=== PATIENT | male | born 1950 | race Caucasian/White ===

== ENCOUNTER 2021-09-01 06:05 | Observation (INO) | payer MEDICAID, MEDICARE, OTHER ==
--- NOTE | 2021-09-01 07:02 | EDM.PDOC ---
ED HPI GENERAL MEDICAL PROBLEM - General Chief Complaint: General Stated Complaint: SYNCOPE Time Seen by Provider: 09/01/21 06:56 Source of Information: Reports: Patient History Limitations: Reports: No Limitations - History of Present Illness INITIAL COMMENTS - FREE TEXT/NARRATIVE: 70 YO WM PRESENTS TO ER AFTER SYNCOPE THIS AM. PT REPORTS HE WAS SLEEPING IN HIS RECLINER AND WOKE UP TO USE THE RESTROOM. PT REPORTS TAKING 3 STEPS AND LOSING HIS BALANCE FALLING TO THE FLOOR. PT UNSURE IF HE LOST CONSCIOUSNESS, BUT STATES HE SPENT THE NEXT 30 MINUTES TRYING TO GET OFF THE FLOOR BEFORE CALLING HIS WHO CALLED EMS FOR ASSISTANCE. PT COMPLAINING OF MILD RIGHT HIP PAIN AND NO OTHER COMPLAINTS AT THIS TIME. PT REPORTS HE WAS TAKEN OFF HIS TRAMADOL AND STARTED ON A NEW MEDICATION (UNSURE OF NAME) WHICH HAS MADE HIM DIZZY SO HE STOPPED TAKING IT YESTERDAY. PT DENIES CHEST PAIN, NO SHORTNESS OF BREATH, NO HEAD/NECK PAIN. PT DENIES RECENT ILLNESSES- NO COUGH/CONGESTION, NO FEVER/CHILLS. PT TAKES PAIN MEDICATION FOR HIS CHRONIC BACK PAIN AND ARTHRITIS. PT ALERT AND ORIENTED X 4, PT ABLE TO MOVE ALL EXTREMITIES WITHOUT PAIN OR DIFFICULTY. Onset: Today Location: Reports: Lower Extremity, Right Quality: Reports: Ache Severity: Mild Improves with: Reports: None Worsens with: Reports: None Associated Symptoms: Reports: No Other Symptoms, Weakness. Denies: Confusion, Chest Pain, Cough, Fever/Chills, Nausea/Vomiting, Shortness of Breath right hip Pain Score (Numeric/FACES): 6 - Related Data Allergies Allergy/AdvReac Type Severity Reaction Status Date / Time sertraline Allergy Mild Other Verified 09/01/21 06:16 acetaminophen [From Vicodin] Allergy Anaphylactic Verified 09/01/21 06:16 Shock allopurinol Allergy Blurred Verified 09/01/21 06:16 Vision atorvastatin Allergy Cannot Verified 09/01/21 06:16 Remember betamethasone Allergy Cannot Verified 09/01/21 06:16 [From Celestone] Remember gabapentin [From Neurontin] Allergy Anaphylactic Verified 09/01/21 06:16 Shock hydrocodone bitartrate Allergy Anaphylactic Verified 09/01/21 06:16 [From Vicodin] Shock propoxyphene Allergy Cannot Verified 09/01/21 06:16 [From Darvocet-N] Remember Home Meds: Home Meds Omeprazole 20 mg PO BID 12/05/15 [History] glipiZIDE [Glucotrol] 10 mg PO BIDAC 12/05/15 [History] Aspirin 81 mg PO BRK 02/23/16 [History] Insulin Glarg,Human.Rec.Analog [LantUS Solostar] 42 units SUBCUT BID 02/23/16 [History] Acetaminophen 2 tab PO BID 01/12/20 [History] Bisacodyl [Gentle Laxative] 10 mg RC DAILY PRN 01/12/20 [History] Diclofenac Sodium [Voltaren 1% Gel] 1 applic TOP QID PRN 01/12/20 [History] Melatonin 12 mg PO BEDTIME 01/12/20 [History] Methyl Salicylate/Menthol [Muscle Rub] 85 gm TP Q4HR PRN 01/12/20 [History] Miconazole 1 applic TOP BID PRN 01/12/20 [History] Mirtazapine 60 mg PO DAILY 01/12/20 [History] Nefazodone [Serzone] 100 mg PO DAILY 01/12/20 [History] Nefazodone [Serzone] 150 mg PO BEDTIME 01/12/20 [History] Propranolol [Inderal LA] 60 mg PO DAILY 01/12/20 [History] Sennosides/Docusate Sodium [Senna Plus 8.6-50 mg Tablet] 1 each PO BID 01/12/20 [History] busPIRone [Buspar] 15 mg PO DAILY@1630 01/12/20 [History] rOPINIRole [Requip] 0.5 mg PO BEDTIME 01/12/20 [History] Clopidogrel Bisulfate [Plavix] 75 mg PO BEDTIME 03/05/20 [History] Empagliflozin [Jardiance] 10 mg PO DAILY 03/05/20 [History] Magnesium Hydroxide [Milk of Magnesia] 30 ml PO DAILY PRN 03/05/20 [History] Nitroglycerin [Nitrostat] 0.4 mg SL ASDIRECTED 03/05/20 [History] Rosuvastatin [Crestor] 5 mg PO ASDIRECTED 03/05/20 [History] Past Medical History HEENT History: Reports: Allergic Rhinitis, Cataract, Hard of Hearing, Impaired Vision, Otitis Media, Sinusitis. 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 Mixed bilateral hearing loss/presbycusis. He does wear glasses, however no history of diabetic retinopathy. Cardiovascular History: Reports: CAD, High Cholesterol, Hypertension, WI, PTCA, Stents, Other (See Below). Denies: Afib, Aneurysm, Arrhythmia, Blood Clots/VTE/DVT, Bypass, Cardiomyopathy, Heart Failure, Heart Murmur, PVD, Syncope Other Cardiovascular History: Acute WI on 01/12/20 and 08/01/16 with stents as below. Respiratory History: Reports: COPD, Intubation, Previous, Sleep Apnea, Other (See Below). Denies: Asthma, Bronchitis, Recurrent, Intubation, Difficult, PE, Pneumonia, Recurrent, Pneumothorax, TB Other Respiratory History: Patient has not been using his CPAP. Gastrointestinal History: Reports: Celiac Disease, Chronic Constipation, Chronic Diarrhea, Diverticulosis, Fecal Incontinence, GERD, Hemorrhoids, Other (See Below). Denies: Bowel Obstruction, Cholelithiasis, Colon Polyp, Gastritis, Hiatal Hernia, Inflammatory Bowel Disease, Irritable Bowel Syndrome, Jaundice, Pancreatitis, PUD Other Gastrointestinal History: Constipation, however diarrhea with exacerbation of his celiac disease. Genitourinary History: Reports: Prostate Disorder, Retention, Urinary, Urinary Incontinence, UTI, Recurrent. Denies: Acute Renal Failure, Chronic Renal Insuffiency, Diabetic Nephropathy, Renal Calculus, STD Musculoskeletal History: Reports: Arthritis, Back Pain, Chronic, Fracture, Gout, Neck Pain, Chronic, Osteoarthritis, Other (See Below). Denies: Amputation, Osteoporosis, RA, SLE Other Musculoskeletal History: Right ankle fracture in 2000 with surgery as below. Neurological History: Reports: Headaches, Chronic, Migraines, Neuropathy, Diabetic, Neuropathy, Peripheral, Vertigo, Other (See Below). Denies: Alzheimers Disease, Cerebral Aneurysms, Concussion, CVA, Head Trauma, MS, Parkinson's, Seizure, TIA Other Neuro History: Previous history of migraine headaches nonproblematic at this time. Restless leg syndrome with history of sleep apnea as above. Benign essential tremor. Psychiatric History: Reports: Anxiety, Depression, Psych Hospitalization(s), Psychosis, Suicide Attempt. Denies: Abuse, Victim of, ADD, ADHD, Addiction, Suicidal Ideation Other Psychiatric History: Previous hospitalizations for his anxiety depression disorder 5 with last hospitalization in about 2018 with 2 previous suicidal attempts. Chronic insomnia. Endocrine/Metabolic History: Reports: Diabetes, Type II, IDDM, Obesity/BMI 30+. Denies: Diabetes Mellitus, Type 3c, Hypothyroidism, Osteopenia, Osteoporosis Hematologic History: Reports: None. Denies: Anemia, Blood Transfusion(s), Iron Deficiency Immunologic History: Reports: None. Denies: AIDS, HIV, SLE Dermatologic History: Reports: None. Denies: Eczema, Psoriasis - Infectious Disease History Infectious Disease History: Reports: Chicken Pox, Measles, Meningitis (Possible meningitis at age 2.), Mumps. Denies: C-Difficile, Mononucleosis, MRSA, Pertussis (Whooping Cough), Rheumatic Fever, Rubella, Scarlet Fever, Shingles, TB, VRE - Past Surgical History Head Surgeries/Procedures: Reports: None HEENT Surgical History: Reports: Cataract Surgery, Oral Surgery, Other (See Below). Denies: Adenoidectomy, Eye Surgery, Laser Surgery, LASIK, Myringotomy w Tube(s), Naso-Sinus Surgery, Tonsillectomy Other HEENT Surgeries/Procedures: [place] teeth extraction 2 in the with additional teeth extractions. Cardiovascular Surgical History: Reports: Coronary Artery Stent, Percutaneous Transluminal Angioplasty, Other (See Below). Denies: Coronary Artery Bypass, Varicose Other Cardiovascular Surgeries/Procedures: PTCA/stent 2 in December 2019 with PTCA/stent 3 on 08/02/16. Respiratory Surgical History: Reports: None. Denies: Thoracentesis GI Surgical History: Reports: Colonoscopy, Hernia, Inguinal, Other (See Below). Denies: Appendectomy, Cholecystectomy, Hernia, Abdominal, Hernia Repair/Other, Polypectomy Other GI Surgeries/Procedures: Left inguinal hernia repair in the mid-. Multiple previous colonoscopies last in 2018 for screening of his celiac disease. Male Surgical History: Reports: Circumcision, Other (See Below). Denies: TURP-Transurethral Resection of Prostate, Vasectomy Other Male Surgeries/Procedures: Circumcision as an . Endocrine Surgical History: Reports: None. Denies: Thyroid Biopsy Musculoskeletal Surgical History: Reports: Joint Replacement, ORIF, Shoulder Replacement, Shoulder Surgery, Other (See Below). Denies: Carpal Tunnel, Ganglion Cyst Other Musculoskeletal Surgeries/Procedures:: Left shoulder arthroplasty in 2004 with right shoulder arthroplasty in 2005. ORIF of right ankle fracture in 2000. Oncologic Surgical History: Reports: None Dermatological Surgical History: Reports: None - Past Imaging History Past Imaging History: Reports: Angiography (Last in December 2019 as above), MRI (Lumbar spine in November 2014.) Social & Family History - Family History HEENT: Reports: Cataract, Retinal Detachment, Other (See Below). Denies: Glaucoma, Macular Degeneration Other HEENT Family History: Multiple Family members with cataracts. Brother with detached retina. Cardiac: Reports: None. Denies: Afib, Aneurysm, Arrhythmia, Blood Clots/VTE/DVT, CAD, Heart Failure, High Cholesterol, Hypertension, WI, PVD/COD, Syncope Respiratory: Reports: COPD, Other (See Below). Denies: Asthma, PE, Pneumothorax, Sleep Apnea Other Respiratory Family Hisory: Father with history of COPD with tobacco use and fungal infection Musculoskeletal: Reports: Osteoarthritis, RA, Other (See Below) Other Musculoskeletal Family History: Brother with rheumatoid arthritis. 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 Denies: Bruising Neurological: Reports: Dizziness, Weakness Psychiatric: Reports: No Symptoms Hematologic/Lymphatic: Reports: No Symptoms Immunologic: Reports: No Symptoms ED EXAM, GENERAL - Physical Exam Exam: See Below Exam Limited By: No Limitations General Appearance: Alert, WD/WN, No Apparent Distress Nose: Normal Inspection, Normal Mucosa, No Blood Throat/Mouth: Normal Inspection, Normal Lips, Normal Teeth, Normal Gums, Normal Oropharynx, Normal Voice, No Airway Compromise Head: Atraumatic, Normocephalic Neck: Normal Inspection, Supple, Non-Tender, Full Range of Motion Respiratory/Chest: No Respiratory Distress, Lungs Clear, Normal Breath Sounds, No Accessory Muscle Use, Chest Non-Tender Cardiovascular: Normal Peripheral Pulses, Regular Rate, Rhythm, No Edema, No Gallop, No JVD, No Murmur, No Rub GI/Abdominal: Normal Bowel Sounds, Soft, Non-Tender, No Organomegaly, No Distention, No Abnormal Bruit, No Mass Back Exam: Normal Inspection, Full Range of Motion, NT Extremities: Normal Inspection, Normal Range of Motion, No Pedal Edema, Normal Capillary Refill, Other (MILD RIGHT HIP PAIN ON PALPATION WITHOUT PAIN ON AROM) Neurological: Alert, Oriented, CN II-XII Intact, Normal Cognition, Normal Gait, No Motor/Sensory Deficits Psychiatric: Normal Affect, Normal Mood Skin Exam: Warm, Dry, Intact, Normal Color, No Rash Lymphatic: No Adenopathy #1 Interpretation EKG Date: 09/01/21 Time: 06:32 Rhythm: NSR Rate (Beats/Min): 91 [place]: Normal P-Wave: Present QRS: Normal ST-T: Normal QT: Normal Course - Vital Signs Last Recorded V/S: Last Vital Signs Temp 96.8 F L 09/01/21 06:06 Pulse 87 09/01/21 06:06 Resp 18 09/01/21 06:06 BP 136/84 09/01/21 06:06 Pulse Ox 97 09/01/21 06:06 Orthostatic Blood Pressure [ 146/73 Standing] Orthostatic Blood Pressure [ 132/87 Sitting] Orthostatic Blood Pressure [ 130/70 Supine] - Orders/Labs/Meds Orders: Active Orders 24 hr Category Date Time Status CORONAVIRUS COVID-19 RAPID [MOLEC] Stat Lab 09/01/21 08:25 Ordered EKG 12 Lead [EK] Stat Ther 09/01/21 06:24 Ordered Labs: Laboratory Tests 09/01/21 09/01/21 09/01/21 Range/Units 06:50 06:50 06:50 WBC 8.84 (5.00-10.00) 10^3/uL RBC 5.56 (4.50-6.00) 10^6/uL Hgb 15.7 (13.0-17.0) g/dL Hct 46.5 (40.0-52.0) % MCV 83.6 (82.0-92.0) fL MCH 28.2 (27.0-31.0) pg MCHC 33.8 (32.0-36.0) g/dL RDW 13.1 (11.5-14.5) % Plt Count 146 L (150-400) 10^3/uL MPV 9.6 (7.4-10.4) fL Immature Gran % (Auto) 0.2 (0.0-5.0) % Neut % (Auto) 77.5 H (50.0-70.0) % Lymph % (Auto) 11.0 L (20.0-40.0) % [place] % (Auto) 8.8 H (2.0-8.0) % Eos % (Auto) 2.3 (1.0-3.0) % Baso % (Auto) 0.2 (0.0-1.0) % Neut # (Auto) 6.85 (2.50-7.00) 10^3/uL Lymph # (Auto) 0.97 L (1.00-4.00) 10^3/uL [place] # (Auto) 0.78 (0.10-0.80) 10^3/uL Eos # (Auto) 0.20 (0.10-0.30) 10^3/uL Baso # (Auto) 0.02 (0.00-0.10) 10^3/uL Immature Gran # (Auto) 0.02 (0.00-0.50) 10^3/uL Sodium 139 (136-145) mmol/L Potassium 3.9 (3.5-5.1) mmol/L Chloride 103 (98-107) mmol/L Carbon Dioxide 25.6 (21.0-32.0) mmol/L Anion Gap 14.3 (5-15) mmol/L BUN 15 (7-18) mg/dL Creatinine 0.98 (0.51-1.17) mg/dL Est Cr Clr Drug Dosing 67.86 mL/min Estimated GFR (MDRD) > 60 mL/min Glucose 157 H (70-140) mg/dL Calcium 8.8 (8.7-10.3) mg/dL Total Bilirubin 0.6 (0.2-1.0) mg/dL AST 9 L (15-37) U/L ALT 18 (14-63) U/L Alkaline Phosphatase 103 (46-116) U/L Troponin I High Sens 6.200 (0-76.000) pg/mL Total Protein 6.8 (6.4-8.2) g/dL Albumin 3.74 (3.40-5.00) g/dL Specimen Type Urinvoid Urine Color Yellow (YELLOW) Urine Appearance Clear (CLEAR) Urine pH 5.5 (5.0-9.0) Ur Specific [place] 1.015 (1.005-1.030) Urine Protein Negative (NEGATIVE) mg/dL Urine Glucose (UA) >=1000 H (NEGATIVE) mg/dL Urine Ketones Trace H (NEGATIVE) mg/dL Urine Occult Blood Negative (NEGATIVE) Urine Nitrite Negative (NEGATIVE) Urine Bilirubin Negative (NEGATIVE) Urine Urobilinogen 0.2 (0.2-1.0) E.U./dL Ur Leukocyte Esterase Negative (NEGATIVE) - Radiology Interpretation Free Text/Narrative:: CT HEAD- NAD CXR-NO ACUTE FINDINGS FEMUR- NO FX OR DISLOCATION PELVIS- NO FX Departure - Departure Time of Disposition: 08:26 Disposition: Refer to Observation Condition: Fair Clinical Impression: Risk for falls, Dizziness Syncope Qualifiers: Encounter type: initial encounter - Discharge Information Sepsis Event Note (ED) - Evaluation Sepsis Screening Result: No Definite Risk - Focused Exam Vital Signs: Vital Signs Temp Pulse Resp BP Pulse Ox 09/01/21 06:06 96.8 F L 87 18 136/84 97 - My Orders Last 24 Hours: My Active Orders 09/01/21 06:24 EKG 12 Lead [EK] Stat 09/01/21 08:25 CORONAVIRUS COVID-19 RAPID [MOLEC] Stat - Assessment/Plan Admission H&P: Please use this note as an admission H&P Last 24 Hours: My Active Orders 09/01/21 06:24 EKG 12 Lead [EK] Stat 09/01/21 08:25 CORONAVIRUS COVID-19 RAPID [MOLEC] Stat Assessment:: 1. SYNCOPE 2. DIZZINESS 3. FALL RISK Plan: 1. ADMIT FOR OBSERVATION- DR CHENEY ACCEPTING @0552 2. SUPPORTIVE CARE 3. CONSIDER PHYSICAL THERAPY ASSESSMENT
[2021-09-01 07:18] LABS: ANION GAP 14.3 mmol/L (5-15); CHLORIDE,CL 103 mmol/L (98-107); SODIUM,NA 139 mmol/L (136-145)
--- NOTE | 2021-09-01 08:02 | CT ---
[id number] CT/CT Head WO IV EXAM: NONCONTRAST HEAD CT INDICATION: FALL. COMPARISON: None. DISCUSSION: There is mild generalized atrophy. Mild multifocal white matter hypoattenuation is nonspecific, but generally ascribed to chronic small vessel ischemia. No mass effect or midline shift. No acute hemorrhage or extra-axial fluid collection. No acute territorial infarct is identified. A limited look at the orbits and paranasal sinuses is unremarkable. IMPRESSION: 1. No evidence of acute intracranial trauma. Kayden Castro MD 09/01/21 0801 Thank you for allowing us to participate in the care of your patient.
--- NOTE | 2021-09-01 08:03 | CR ---
[id number] RAD/RAD Pelvis 1-2V EXAM: AP PELVIS CLINICAL DATA: FALL. COMPARISON: None. FINDINGS: Hip rotation mildly limits assessment for fracture. Mild to moderate osteoarthritis of the hips and sacroiliac joints. Partially characterized surgical changes in the lower lumbar spine including disc replacements and posterior fusion hardware. No acute fracture or dislocation is identified. IMPRESSION: 1. No acute findings. Kayden Castro MD 09/01/21 0802 Thank you for allowing us to participate in the care of your patient.
--- NOTE | 2021-09-01 08:05 | CR ---
[id number] RAD/RAD Chest PA or AP 1V EXAM: FRONTAL CHEST INDICATION: FALL. COMPARISON: February 23, 2016. DISCUSSION: Partially imaged bilateral shoulder arthroplasties. Low lung volumes. Normal heart size. No pneumothorax or pleural fluid. No acute infiltrates. IMPRESSION: 1. No acute findings. Kayden Castro MD 09/01/21 0804 Thank you for allowing us to participate in the care of your patient.
--- NOTE | 2021-09-01 08:16 | CR ---
[id number] RAD/RAD Femur Right 2V EXAM: RAD Femur Right 2V INDICATION: KNEE PAIN. COMPARISON: Pelvis radiograph same date. DISCUSSION: Mild to moderate osteoarthritis of the hip and knee. No acute fracture or dislocation is identified. Partially imaged surgical changes in the lower lumbar spine. IMPRESSION: 1. No acute findings. Kayden Castro MD 09/01/21 0815 Thank you for allowing us to participate in the care of your patient.
[2021-09-01] MEDS ORDERED: Lidocaine 2% 100 MG/5 ML Syringe IVPUSH PRN (09:27)
[2021-09-01] MEDS ORDERED: Nitroglycerin 0.4 MG Tab.SL SL PRN (09:27)
[2021-09-01] MEDS ORDERED: EPINEPHrine 1:10,000 1 MG/10 ML Syringe IVPUSH PRN (09:27)
[2021-09-01] MEDS ORDERED: Atropine 0.1 MG/ML 10 ML Syringe IVPUSH PRN (09:27)
[2021-09-01] MEDS ORDERED: Sodium Chloride 0.9% 10 ML Syringe FLUSH PRN (09:27)
--- NOTE | 2021-09-01 09:55 | PCM.PN ---
- General Info Date of Service: 09/01/21 Admission Dx/Problem (Free Text): Fall at home. - Review of Systems Systems Review Comment:: 09/01: Jonathan is admitted from the ER today after a fall at home this morning. He denies syncope or LOC, states "I remember everything that happened". He states he was on tramadol for arthritis pain and that got changed recently to something else that he does not recall and it was making him very dizzy and so he stopped it yesterday. He got up to use the bathroom this morning and got dizzy and fell. All imaging does not indicate any fractures or dislocations. He was able to ambulate from the ER cart to the chair in his room without di fficulty and was able to do it independently. He states he has a four wheeled walker at home with a seat and handbrakes he uses when he has to walk any distance for for short distances he usually does not use anything. He states he is feeling fine now. He is admitted for observation and PT consultation with intent for discharge tomorrow if he does well overnight. - Patient Data Vitals - Most Recent: Last Vital Signs Temp 97 F 09/01/21 09:32 Pulse 95 09/01/21 09:32 Resp 20 09/01/21 09:32 BP 139/86 09/01/21 09:32 Pulse Ox 96 09/01/21 09:32 Orthostatic Blood Pressure [ 146/73 Standing] Orthostatic Blood Pressure [ 132/87 Sitting] Orthostatic Blood Pressure [ 130/70 Supine] Weight - Most Recent: 191 lb 4.8 oz Lab Results Last 24 Hours: Laboratory Results - last 24 hr 09/01/21 09/01/21 09/01/21 Range/Units 06:50 06:50 06:50 WBC 8.84 (5.00-10.00) 10^3/uL RBC 5.56 (4.50-6.00) 10^6/uL Hgb 15.7 (13.0-17.0) g/dL Hct 46.5 (40.0-52.0) % MCV 83.6 (82.0-92.0) fL MCH 28.2 (27.0-31.0) pg MCHC 33.8 (32.0-36.0) g/dL RDW 13.1 (11.5-14.5) % Plt Count 146 L (150-400) 10^3/uL MPV 9.6 (7.4-10.4) fL Immature Gran % (Auto) 0.2 (0.0-5.0) % Neut % (Auto) 77.5 H (50.0-70.0) % Lymph % (Auto) 11.0 L (20.0-40.0) % Hinds % (Auto) 8.8 H (2.0-8.0) % Eos % (Auto) 2.3 (1.0-3.0) % Baso % (Auto) 0.2 (0.0-1.0) % Neut # (Auto) 6.85 (2.50-7.00) 10^3/uL Lymph # (Auto) 0.97 L (1.00-4.00) 10^3/uL Hinds # (Auto) 0.78 (0.10-0.80) 10^3/uL Eos # (Auto) 0.20 (0.10-0.30) 10^3/uL Baso # (Auto) 0.02 (0.00-0.10) 10^3/uL Immature Gran # (Auto) 0.02 (0.00-0.50) 10^3/uL Sodium 139 (136-145) mmol/L Potassium 3.9 (3.5-5.1) mmol/L Chloride 103 (98-107) mmol/L Carbon Dioxide 25.6 (21.0-32.0) mmol/L Anion Gap 14.3 (5-15) mmol/L BUN 15 (7-18) mg/dL Creatinine 0.98 (0.51-1.17) mg/dL Est Cr Clr Drug Dosing 67.86 mL/min Estimated GFR (MDRD) > 60 mL/min Glucose 157 H (70-140) mg/dL Calcium 8.8 (8.7-10.3) mg/dL Total Bilirubin 0.6 (0.2-1.0) mg/dL AST 9 L (15-37) U/L ALT 18 (14-63) U/L Alkaline Phosphatase 103 (46-116) U/L Troponin I High Sens 6.200 (0-76.000) pg/mL Total Protein 6.8 (6.4-8.2) g/dL Albumin 3.74 (3.40-5.00) g/dL Specimen Type Urinvoid Urine Color Yellow (YELLOW) Urine Appearance Clear (CLEAR) Urine pH 5.5 (5.0-9.0) Ur Specific Clancy 1.015 (1.005-1.030) Urine Protein Negative (NEGATIVE) mg/dL Urine Glucose (UA) >=1000 H (NEGATIVE) mg/dL Urine Ketones Trace H (NEGATIVE) mg/dL Urine Occult Blood Negative (NEGATIVE) Urine Nitrite Negative (NEGATIVE) Urine Bilirubin Negative (NEGATIVE) Urine Urobilinogen 0.2 (0.2-1.0) E.U./dL Ur Leukocyte Esterase Negative (NEGATIVE) SARS CoV-2 RNA Rapid YAIMA (NEGATIVE) 09/01/21 Range/Units 08:23 WBC (5.00-10.00) 10^3/uL RBC (4.50-6.00) 10^6/uL Hgb (13.0-17.0) g/dL Hct (40.0-52.0) % MCV (82.0-92.0) fL MCH (27.0-31.0) pg MCHC (32.0-36.0) g/dL RDW (11.5-14.5) % Plt Count (150-400) 10^3/uL MPV (7.4-10.4) fL Immature Gran % (Auto) (0.0-5.0) % Neut % (Auto) (50.0-70.0) % Lymph % (Auto) (20.0-40.0) % Hinds % (Auto) (2.0-8.0) % Eos % (Auto) (1.0-3.0) % Baso % (Auto) (0.0-1.0) % Neut # (Auto) (2.50-7.00) 10^3/uL Lymph # (Auto) (1.00-4.00) 10^3/uL Hinds # (Auto) (0.10-0.80) 10^3/uL Eos # (Auto) (0.10-0.30) 10^3/uL Baso # (Auto) (0.00-0.10) 10^3/uL Immature Gran # (Auto) (0.00-0.50) 10^3/uL Sodium (136-145) mmol/L Potassium (3.5-5.1) mmol/L Chloride (98-107) mmol/L Carbon Dioxide (21.0-32.0) mmol/L Anion Gap (5-15) mmol/L BUN (7-18) mg/dL Creatinine (0.51-1.17) mg/dL Est Cr Clr Drug Dosing mL/min Estimated GFR (MDRD) mL/min Glucose (70-140) mg/dL Calcium (8.7-10.3) mg/dL Total Bilirubin (0.2-1.0) mg/dL AST (15-37) U/L ALT (14-63) U/L Alkaline Phosphatase (46-116) U/L Troponin I High Sens (0-76.000) pg/mL Total Protein (6.4-8.2) g/dL Albumin (3.40-5.00) g/dL Specimen Type Urine Color (YELLOW) Urine Appearance (CLEAR) Urine pH (5.0-9.0) Ur Specific Clancy (1.005-1.030) Urine Protein (NEGATIVE) mg/dL Urine Glucose (UA) (NEGATIVE) mg/dL Urine Ketones (NEGATIVE) mg/dL Urine Occult Blood (NEGATIVE) Urine Nitrite (NEGATIVE) Urine Bilirubin (NEGATIVE) Urine Urobilinogen (0.2-1.0) E.U./dL Ur Leukocyte Esterase (NEGATIVE) SARS CoV-2 RNA Rapid YAIMA Negative (NEGATIVE) Med Orders - Current: Current Medications Atropine Sulfate (Atropine 0.1 Mg/Ml 10 Ml Syringe) 0 mg IVPUSH ASDIRECTED PRN PRN Reason: Heart. Epinephrine HCl (Epinephrine 1:10,000 1 Mg/10 Ml Syringe) 1 mg IVPUSH ASDIRECTED PRN PRN Reason: Heart. Lidocaine HCl (Lidocaine 2% 100 Mg/5 Ml Syringe) 0 mg IVPUSH ASDIRECTED PRN PRN Reason: Heart. Nitroglycerin (Nitroglycerin 0.4 Mg Tab.Sl) 0.4 mg SL ASDIRECTED PRN PRN Reason: Heart. Sodium Chloride (Sodium Chloride 0.9% 10 Ml Syringe) 10 ml FLUSH Q8HR PRN PRN Reason: keep vein open - Exam General: Alert, Oriented, Cooperative, No Acute Distress Lungs: Clear to Auscultation, Normal Respiratory Effort Cardiovascular: Regular Rate, Regular Rhythm, No Murmurs - Patient Data Lab Results Last 24 hrs: Laboratory Results - last 24 hr 09/01/21 09/01/21 09/01/21 Range/Units 06:50 06:50 06:50 WBC 8.84 (5.00-10.00) 10^3/uL RBC 5.56 (4.50-6.00) 10^6/uL Hgb 15.7 (13.0-17.0) g/dL Hct 46.5 (40.0-52.0) % MCV 83.6 (82.0-92.0) fL MCH 28.2 (27.0-31.0) pg MCHC 33.8 (32.0-36.0) g/dL RDW 13.1 (11.5-14.5) % Plt Count 146 L (150-400) 10^3/uL MPV 9.6 (7.4-10.4) fL Immature Gran % (Auto) 0.2 (0.0-5.0) % Neut % (Auto) 77.5 H (50.0-70.0) % Lymph % (Auto) 11.0 L (20.0-40.0) % Hinds % (Auto) 8.8 H (2.0-8.0) % Eos % (Auto) 2.3 (1.0-3.0) % Baso % (Auto) 0.2 (0.0-1.0) % Neut # (Auto) 6.85 (2.50-7.00) 10^3/uL Lymph # (Auto) 0.97 L (1.00-4.00) 10^3/uL Hinds # (Auto) 0.78 (0.10-0.80) 10^3/uL Eos # (Auto) 0.20 (0.10-0.30) 10^3/uL Baso # (Auto) 0.02 (0.00-0.10) 10^3/uL Immature Gran # (Auto) 0.02 (0.00-0.50) 10^3/uL Sodium 139 (136-145) mmol/L Potassium 3.9 (3.5-5.1) mmol/L Chloride 103 (98-107) mmol/L Carbon Dioxide 25.6 (21.0-32.0) mmol/L Anion Gap 14.3 (5-15) mmol/L BUN 15 (7-18) mg/dL Creatinine 0.98 (0.51-1.17) mg/dL Est Cr Clr Drug Dosing 67.86 mL/min Estimated GFR (MDRD) > 60 mL/min Glucose 157 H (70-140) mg/dL Calcium 8.8 (8.7-10.3) mg/dL Total Bilirubin 0.6 (0.2-1.0) mg/dL AST 9 L (15-37) U/L ALT 18 (14-63) U/L Alkaline Phosphatase 103 (46-116) U/L Troponin I High Sens 6.200 (0-76.000) pg/mL Total Protein 6.8 (6.4-8.2) g/dL Albumin 3.74 (3.40-5.00) g/dL Specimen Type Urinvoid Urine Color Yellow (YELLOW) Urine Appearance Clear (CLEAR) Urine pH 5.5 (5.0-9.0) Ur Specific Clancy 1.015 (1.005-1.030) Urine Protein Negative (NEGATIVE) mg/dL Urine Glucose (UA) >=1000 H (NEGATIVE) mg/dL Urine Ketones Trace H (NEGATIVE) mg/dL Urine Occult Blood Negative (NEGATIVE) Urine Nitrite Negative (NEGATIVE) Urine Bilirubin Negative (NEGATIVE) Urine Urobilinogen 0.2 (0.2-1.0) E.U./dL Ur Leukocyte Esterase Negative (NEGATIVE) SARS CoV-2 RNA Rapid YAIMA (NEGATIVE) 09/01/21 Range/Units 08:23 WBC (5.00-10.00) 10^3/uL RBC (4.50-6.00) 10^6/uL Hgb (13.0-17.0) g/dL Hct (40.0-52.0) % MCV (82.0-92.0) fL MCH (27.0-31.0) pg MCHC (32.0-36.0) g/dL RDW (11.5-14.5) % Plt Count (150-400) 10^3/uL MPV (7.4-10.4) fL Immature Gran % (Auto) (0.0-5.0) % Neut % (Auto) (50.0-70.0) % Lymph % (Auto) (20.0-40.0) % Hinds % (Auto) (2.0-8.0) % Eos % (Auto) (1.0-3.0) % Baso % (Auto) (0.0-1.0) % Neut # (Auto) (2.50-7.00) 10^3/uL Lymph # (Auto) (1.00-4.00) 10^3/uL Hinds # (Auto) (0.10-0.80) 10^3/uL Eos # (Auto) (0.10-0.30) 10^3/uL Baso # (Auto) (0.00-0.10) 10^3/uL Immature Gran # (Auto) (0.00-0.50) 10^3/uL Sodium (136-145) mmol/L Potassium (3.5-5.1) mmol/L Chloride (98-107) mmol/L Carbon Dioxide (21.0-32.0) mmol/L Anion Gap (5-15) mmol/L BUN (7-18) mg/dL Creatinine (0.51-1.17) mg/dL Est Cr Clr Drug Dosing mL/min Estimated GFR (MDRD) mL/min Glucose (70-140) mg/dL Calcium (8.7-10.3) mg/dL Total Bilirubin (0.2-1.0) mg/dL AST (15-37) U/L ALT (14-63) U/L Alkaline Phosphatase (46-116) U/L Troponin I High Sens (0-76.000) pg/mL Total Protein (6.4-8.2) g/dL Albumin (3.40-5.00) g/dL Specimen Type Urine Color (YELLOW) Urine Appearance (CLEAR) Urine pH (5.0-9.0) Ur Specific Clancy (1.005-1.030) Urine Protein (NEGATIVE) mg/dL Urine Glucose (UA) (NEGATIVE) mg/dL Urine Ketones (NEGATIVE) mg/dL Urine Occult Blood (NEGATIVE) Urine Nitrite (NEGATIVE) Urine Bilirubin (NEGATIVE) Urine Urobilinogen (0.2-1.0) E.U./dL Ur Leukocyte Esterase (NEGATIVE) SARS CoV-2 RNA Rapid YAIMA Negative (NEGATIVE) Result Diagrams: 09/01/21 06:50 09/01/21 06:50 Sepsis Event Note - Evaluation Sepsis Screening Result: No Definite Risk - Focused Exam Vital Signs: Vital Signs Temp Pulse Resp BP Pulse Ox Pulse Ox 09/01/21 09:32 97 F 95 20 139/86 97 96 09/01/21 06:06 96.8 F L 87 18 136/84 97 - Problem List Review Problem List Initiated/Reviewed/Updated: Yes - My Orders Last 24 Hours: My Active Orders 09/01/21 09:27 Peripheral IV Care [RC] Atropine [Atropine 0.1 MG/ML] See Dose Instructions IVPUSH ASDIRECTED PRN EPINEPHrine [EPINEPHrine 1:10,000] 1 mg IVPUSH ASDIRECTED PRN Lidocaine 2% [Xylocaine 2%] See Dose Instructions IVPUSH ASDIRECTED PRN Nitroglycerin [Nitrostat] 0.4 mg SL ASDIRECTED PRN Sodium Chloride 0.9% [Saline Flush] 10 ml FLUSH Q8HR PRN Peripheral IV Insertion Adult [OM.PC] Routine - Assessment Assessment:: Admission Diagnoses: Fall - Fall risk precautions - PT eval and treat Dizziness, medication induced - Continue to hold Buprenorphine/Naloxone 2-0.5 mg BID, started on 08/30 to replace tramadol 100 mg PO BID, held 08/31 and 09/01 Secondary Diagnoses: CAD s/p stent placement in 2015 and 2019 - ASA 81 mg PO daily - Plavix 75 mg PO qhs - NTG SL 0.4 mg PRN HTN - Propranolol 60 mg PO daily HLD - Rosuvastatin 5 mg PO q // Arthritis - Tylenol 650 mg PO BID - Voltaren Gel 1%, apply 4 grams to affected areas QID PRN Anxiety with depression - Buspirone 20 mg PO BID - Driggs 750 mg PO qhs - Seroquel 300 mg PO qhs IDDM - Lantus 34 units subcut BID - Jardiance 25 mg PO daily - Glipizide 10 mg PO BID Acid Reflux - Omeprazole 40 mg PO daily Insomnia - Melatonin 9 mg PO qhs - Mirtazapine 60 mg PO qhs Constipation - Senna-S 2 tabs PO BID DVT Prophylaxis: Ambulatory FEN: Diabetic Diet CODE STATUS: Full Code Anticipate discharge in 24-48 hours
[2021-09-01] MEDS ORDERED: CAMPHOR TOP PRN (11:06)
[2021-09-01] MEDS ORDERED: [UNRECOGNIZED DRUG - OTHER] TOP PRN (11:06)
[2021-09-01] MEDS ORDERED: MENTHOL TOP PRN (11:06)
[2021-09-01] MEDS ORDERED: Diclofenac Sodium 1% Gel 100 GM Tube TOP PRN (11:06)
[2021-09-01] MEDS ORDERED: Nitroglycerin 0.4 MG Tab.SL SL SCH (11:15)
[2021-09-01] MEDS ORDERED: Non-Formulary Medication 1 Each (Naloxone Hcl [Narcan] 4 MG Spray) NAS SCH (11:15)
[2021-09-01] MEDS ORDERED: Rosuvastatin 5 MG Tab PO SCH (11:52)
[2021-09-01] MEDS ORDERED: busPIRone 10 MG Tab PO SCH (12:00)
[2021-09-01] MEDS ORDERED: Propranolol 60 MG Cap.ER PO SCH (12:00)
[2021-09-01] MEDS ORDERED: PROPRANOLOL 60 MG PO SCH (12:09)
[2021-09-01] MEDS ORDERED: ROSUVASTATIN 5 MG PO SCH (12:13)
[2021-09-01] MEDS: OMEPRAZOLE 40 MG PO SCH (12:25)
[2021-09-01] MEDS: Acetaminophen 325 MG Tab PO SCH ×2 (12:26→21:41)
[2021-09-01] MEDS: EMPAGLIFLOZIN 25 MG PO SCH (12:26)
[2021-09-01] MEDS: Aspirin 81 MG Tab.EC PO SCH (12:27)
[2021-09-01] MEDS: PROPRANOLOL 60 MG PO SCH (12:29)
[2021-09-01] MEDS: GLIPIZIDE 10 MG PO SCH (17:41)
[2021-09-01] MEDS ORDERED: ROPINIROLE 0.5 MG PO SCH (21:00)
[2021-09-01] MEDS ORDERED: Clopidogrel 75 MG Tab - PTOM PO SCH (21:00)
[2021-09-01] MEDS ORDERED: LITHIUM CARBONATE 300 MG PO SCH (21:00)
[2021-09-01] MEDS ORDERED: QUETIAPINE FUMARATE 300 MG PO SCH (21:00)
[2021-09-01] MEDS ORDERED: LITHIUM CARBONATE 150 MG PO SCH (21:00)
[2021-09-01] MEDS ORDERED: MIRTAZAPINE 30 MG PO SCH (21:00)
[2021-09-01] MEDS ORDERED: Melatonin 3 MG Tab PO SCH (21:00)
[2021-09-01] MEDS: BUSPIRONE 10 MG PO SCH (21:39)
[2021-09-01] MEDS: Insulin Glargine,Hum.Rec.Anlog 100 UNIT/ML 3 ML Pen SUBCUT SCH (21:40)
[2021-09-02] MEDS: OMEPRAZOLE 40 MG PO SCH (06:29)
[2021-09-02] MEDS: GLIPIZIDE 10 MG PO SCH (06:29)
[2021-09-02 06:35] VITALS: BP 137/84; PULSE 68
--- NOTE | 2021-09-02 07:47 | PT ---
PATIENT NAME: NORMA CANTU MEDICAL RECORD NUMBER: : [id number] DATE: 09/01/2021 REFERRING PHYSICIAN: Lilliam Sandy MD ONSET DATE: 09/01/2021. DATE OF EVALUATION: 09/01/2021. DIAGNOSIS: Syncope. SUBJECTIVE: The patient states that at approximately 4 a.m. this morning, he went to get out of his chair to use the restroom and lost his balance, falling to the floor. The patient had some hip discomfort after the initial fall, but this has improved to absent at the time of the evaluation. The patient truly believes that this was a complication due to a medication change as of Monday. The patient said that he just started to feel altogether different after the medication change. He feels like he has returned to a "normal status" at this time. He was able to take a long walk this afternoon without issue. The patient does use a walker occasionally at home, but he does not use it often. He agrees to use his walker for the next day or two to make sure that he stays stable on his feet. The patient tells me he is relatively active for being 70 years old and plans to continue to do so. He said the improvement from this morning until the time of evaluation by PT is drastic. He has no concerns about returning home and has no concerns for safety or falling. OBJECTIVE TREATMENT TIME: 1400. TREATMENT: Consisted of physical therapy initial evaluation, low complex. OBSERVATION: The patient is upright in chair. This is a very pleasant individual. He is very easy to work with and complies well with PT. PAIN: The patient denies pain at the time of evaluation. PALPATION: Negative. RANGE OF MOTION: Active range of motion is grossly within normal limits of bilateral upper and lower extremities. MANUAL MUSCLE TEST: Grade 5/5 in all planes of bilateral lower extremities throughout all musculature. SPECIAL TESTS: Romberg balance test with eyes open is 30 seconds, Romberg with eyes closed is 10 seconds, Tinetti balance score of 24/28. NEUROLOGIC FINDINGS: Grossly intact and normal. ASSESSMENT: Impression: The patient has made what he considers a full recovery from his onset of dizziness and a fall this morning until now. Manual muscle test is excellent. The patient has adequate balance without support. He is able to ambulate with a normal gait pattern inside a front-wheeled walker safely. He is independent with all transfers. Goals to be accomplished in 1 visit, one PT evaluation will be completed. PLAN: There is no further indication for any physical therapy intervention as the patient is entirely functional and safe with all activities. The patient will be further assessed by PCP in the morning and plan for discharge to home.
[2021-09-02] MEDS: Aspirin 81 MG Tab.EC PO SCH (08:36)
[2021-09-02] MEDS: Acetaminophen 325 MG Tab PO SCH (08:36)
[2021-09-02] MEDS: EMPAGLIFLOZIN 25 MG PO SCH (08:37)
[2021-09-02] MEDS: PROPRANOLOL 60 MG PO SCH (08:37)
[2021-09-02] MEDS: BUSPIRONE 10 MG PO SCH (08:38)
[2021-09-02] MEDS: Insulin Glargine,Hum.Rec.Anlog 100 UNIT/ML 3 ML Pen SUBCUT SCH (08:39)
[2021-09-02] MEDS ORDERED: Aspirin 81 MG Tab.EC PO SCH (10:00)
--- NOTE | 2021-09-02 10:01 | PCM.DCSUM1 ---
Discharge Summary - Hospital Course Diagnosis: Stroke: No - Discharge Data Discharge Date: 09/02/21 Discharge Disposition: Home, Self-Care 01 Condition: Good - Referral to Home Health Primary Care Physician: PCP Not In Area - Patient Summary/Data Consults: Consultations 09/01/21 08:27 PT Evaluation and Treatment [CONS] Routine - Patient Instructions Diet: Diabetic Diet Fluid Restriction: 1500 mL Activity: As Tolerated Driving: Do Not Drive Showering/Bathing: May Shower Notify Provider of: Fever, Nausea and/or Vomiting Other/Special Instructions: We STOPPED your Buprenorphine (the medicine that replaced tramadol). Discuss this medicine and with your Doctor as likely you had a serious reaction to it. An appointment with your Dr in [place] has been made: - Discharge Plan *PRESCRIPTION DRUG MONITORING PROGRAM REVIEWED*: Not Applicable *COPY OF PRESCRIPTION DRUG MONITORING REPORT IN PATIENT ABRAHAM: Not Applicable Home Medications: Home Meds Omeprazole 40 mg PO ACBREAKFAST 12/05/15 [History] glipiZIDE [Glucotrol] 10 mg PO BIDAC 12/05/15 [History] Insulin Glarg,Human.Rec.Analog [LantUS Solostar] 34 units SUBCUT BID 02/23/16 [History] Diclofenac Sodium [Voltaren 1% Gel] 4 gram TOP QID PRN 01/12/20 [History] Melatonin 9 mg PO BEDTIME 01/12/20 [History] Mirtazapine 60 mg PO BEDTIME 01/12/20 [History] Propranolol [Inderal LA] 60 mg PO DAILY 01/12/20 [History] Sennosides/Docusate Sodium [Senna Plus 8.6-50 mg Tablet] 2 tab PO BID 01/12/20 [History] rOPINIRole [Requip] 0.75 mg PO BEDTIME 01/12/20 [History] Clopidogrel Bisulfate [Plavix] 75 mg PO BEDTIME 03/05/20 [History] Empagliflozin [Jardiance] 25 mg PO DAILY 03/05/20 [History] Nitroglycerin [Nitrostat] 0.4 mg SL ASDIRECTED 03/05/20 [History] Rosuvastatin [Crestor] 5 mg PO MOWEFR 03/05/20 [History] Acetaminophen [Tylenol] 650 mg PO BID 09/01/21 [History] Aspirin [Aspirin EC] 81 mg PO DAILY 09/01/21 [History] [place] Carbonate 150 mg PO BEDTIME 09/01/21 [History] [place] Carbonate 600 mg PO BEDTIME 09/01/21 [History] Menthol/Camphor [Sarna Original 0.5%-0.5% Lotn] 1 applic TOP QID PRN 09/01/21 [History] Naloxone HCl [Narcan] 1 spray GEOVANNA ASDIRECTED 09/01/21 [History] QUEtiapine Fumarate [Quetiapine Fumarate] 300 mg PO BEDTIME 09/01/21 [History] Aspirin [Halfprin] 81 mg PO DAILY tab.ec 09/02/21 [Rx] Referrals: PCP,Not In Area [Primary Care Provider] - 09/09/21 10:00 am - Discharge Summary/Plan Comment DC Time >30 min.: Yes Total # of Minutes for Discharge Time: 40 minutes Discharge Summary/Plan Comment: Final Dx. Fall likely due to dizziness related to med adv reaction. Secondary Diagnoses: CAD s/p stent placement in 2015 and 2019 HTN HLD Arthritis Anxiety with depression IDDM Acid Reflux Insomnia Constipation History summary Mr Goldberg is a pleasant 70-year-old gentleman that was admitted into OBS status through the ED when he sustained a fall at his home when he became slightly lightheaded. Normally doctors with the [place] and a physician in [place] recently taken off tramadol which he had been on for quite some time and replaced with Suboxone when he took this he stated it made him extremely dizziness and lightheadedness thoughts sustaining a fall at home. He was at his baseline during his work-up into the emergency department, he was admitted into observation status for further evaluation and likely PT evaluation ED course Vital signs, within normal parameters labs, acceptable, no signs of infection, Covid negative Chest x-ray, head CT, pelvis and femur reviewed by myself, no fractures or acute processes Hospital course 09/01: Jonathan is admitted from the ER today after a fall at home this morning. He denies syncope or LOC, states "I remember everything that happened". He states he was on tramadol for arthritis pain and that got changed recently to s omething else that he does not recall and it was making him very dizzy and so he stopped it yesterday. He got up to use the bathroom this morning and got dizzy and fell. He was able to ambulate from the ER cart to the chair in his room without difficulty and was able to do it independently. He states he has a four wheeled walker at home with a seat and handbrakes he uses when he has to walk a [place] distance for for short distances he usually does not use anything. He states he is feeling fine now. He is admitted for observation and PT consultation with intent for discharge tomorrow if he does well overnight. 09/02; upon rounds patient sitting in chair, conversing, completely back to his normal baseline of all cognition and ambulation. Patient was ambulating in the hallways quite aggressively with his usual 4 wheeled walker. Physical therapy evaluated him and did not feel he needed any further physical/occupational therapy. Vital signs good, no fever, no more dizziness. His Suboxone was held during this short admission. Medication/adjustments upon discharge --DC Suboxone --Continue all other home medications Disposition/overall plan Patient was optimized during the short hospitalized a. He will be discharged to follow-up when it was made for his PCP in [place]. He is to report any further concerns, dizziness, falls. - General Info Functional Status: Reports: Pain Controlled, Tolerating Diet, Ambulating. Denies: Incentive Spirometry - Review of Systems General: Denies: Fever, Weakness, Fatigue, Malaise HEENT: Reports: No Symptoms Pulmonary: Reports: No Symptoms Cardiovascular: Reports: No Symptoms Gastrointestinal: Reports: No Symptoms - Patient Data Vitals - Most Recent: Last Vital Signs Temp 97.1 F 09/02/21 06:34 Pulse 68 09/02/21 06:34 Resp 16 09/02/21 06:34 BP 137/84 09/02/21 06:34 Pulse Ox 97 09/02/21 07:14 Orthostatic Blood Pressure [ 146/73 Standing] Orthostatic Blood Pressure [ 132/87 Sitting] Orthostatic Blood Pressure [ 130/70 Supine] Weight - Most Recent: 191 lb 4.8 oz I&O - Last 24 hours: Intake & Output 09/01/21 09/02/21 09/02/21 22:59 06:59 14:59 Intake Total 240 100 Balance 240 100 Lab Results - Last 24 hrs: Laboratory Results - last 24 hr 09/01/21 09/01/21 09/02/21 Range/Units 11:28 17:32 07:44 POC Glucose 118 118 100 (70-140) mg/dL Med Orders - Current: Current Medications Acetaminophen (Acetaminophen 325 Mg Tab) 650 mg PO BID [facility] Last Admin: 09/02/21 08:36 Dose: 650 mg Documented by: Aspirin (Aspirin 81 Mg Tab.Ec) 81 mg PO DAILY [facility] Last Admin: 09/02/21 08:36 Dose: 81 mg Documented by: Aspirin (Aspirin 81 Mg Tab.Ec) 81 mg PO DAILY [facility] Atropine Sulfate (Atropine 0.1 Mg/Ml 10 Ml Syringe) 0 mg IVPUSH ASDIRECTED PRN PRN Reason: Heart. Clopidogrel Bisulfate (Clopidogrel 75 Mg Tab - Ptom) 75 mg PO BEDTIME [facility] Last Admin: 09/01/21 21:40 Dose: 75 mg Documented by: Diclofenac Sodium (Diclofenac Sodium 1% Gel 100 Gm Tube) 4 gm TOP QID PRN PRN Reason: Pain Epinephrine HCl (Epinephrine 1:10,000 1 Mg/10 Ml Syringe) 1 mg IVPUSH ASDIRECTED PRN PRN Reason: Heart. Insulin Glargine (Insulin Glargine,Hum.Rec.Anlog 100 Unit/Ml 3 Ml Pen) 34 unit SUBCUT BID [facility] Last Admin: 09/02/21 08:39 Dose: 34 units Documented by: Lidocaine HCl (Lidocaine 2% 100 Mg/5 Ml Syringe) 0 mg IVPUSH ASDIRECTED PRN PRN Reason: Heart. Melatonin (Melatonin 3 Mg Tab) 9 mg PO BEDTIME [facility] Last Admin: 09/01/21 21:40 Dose: 9 mg Documented by: Nitroglycerin (Nitroglycerin 0.4 Mg Tab.Sl) 0.4 mg SL ASDIRECTED PRN PRN Reason: Heart. Omeprazole 40mg Dr (Cap - Ptom) 40 mg PO ACBREAKFAST [facility] Last Admin: 09/02/21 06:29 Dose: 40 mg Documented by: Empagliflozin [ Jardiance] 25 Mg Tablet - Ptom 1 each PO DAILY [facility] Last Admin: 09/02/21 08:37 Dose: 1 each Documented by: Glipizide 10 Mg Tab (- Ptom) 1 each PO BIDAC [facility] Last Admin: 09/02/21 06:29 Dose: 1 each Documented by: [place] Carbonate 150 Mg Capsule - Ptom 1 each PO BEDTIME [facility] Last Admin: 09/01/21 21:39 Dose: 1 each Documented by: [place] Carbonate (300 Mg Cap - Ptom) 2 each PO BEDTIME [facility] Last Admin: 09/01/21 21:39 Dose: 2 each Documented by: Mirtazapine 30mg Tab (- Ptom) 2 each PO BEDTIME [facility] Last Admin: 09/01/21 21:39 Dose: 2 each Documented by: Quetiapine Fumarate (300 Mg Tablet - Ptom) 1 each PO BEDTIME [facility] Last Admin: 09/01/21 21:39 Dose: 1 each Documented by: Ropinirole 0.5mg Tab (- Ptom) 1.5 each PO BEDTIME [facility] Last Admin: 09/01/21 21:39 Dose: 1.5 each Documented by: Buspirone 10 Mg Tab (- Ptom) 2 each PO BID [facility] Last Admin: 09/02/21 08:38 Dose: 2 each Documented by: Propranolol 60 Mg (Cap.Er - Ptom) 1 each PO DAILY [facility] Last Admin: 09/02/21 08:37 Dose: 1 each Documented by: Rosuvastatin Calcium (Rosuvastatin 5 Mg Tab - Ptom) 5 mg PO MOWEFR [facility] Last Admin: 09/01/21 12:28 Dose: 5 mg Documented by: Senna/Docusate Sodium (Docusate Sodium/Sennosides 50-8.6 Mg Tab) 2 tab PO BID [facility] Last Admin: 09/02/21 08:36 Dose: 2 tab Documented by: Sodium Chloride (Sodium Chloride 0.9% 10 Ml Syringe) 10 ml FLUSH Q8HR PRN PRN Reason: keep vein open Discontinued Medications Buspirone HCl (Buspirone 10 Mg Tab) 20 mg PO BID [facility] Last Admin: 09/01/21 12:12 Dose: Not Given Documented by: Nitroglycerin (Nitroglycerin 0.4 Mg Tab.Sl) 0.4 mg SL ASDIRECTED [facility] Propranolol 60 Mg (Cap.Er - Ptom) 1 each PO DAILY [facility] Propranolol HCl (Propranolol 60 Mg Cap.Er) 60 mg PO DAILY [facility] Last Admin: 09/01/21 12:12 Dose: Not Given Documented by: Rosuvastatin Calcium (Rosuvastatin 5 Mg Tab) 5 mg PO MOWEFR [facility] Last Admin: 09/01/21 12:22 Dose: Not Given Documented by: - Exam Quality Assessment: Denies: Supplemental Oxygen General: Reports: Alert, Oriented, Cooperative, No Acute Distress Neck: Reports: Supple Lungs: Reports: Clear to Auscultation Cardiovascular: Reports: Regular Rate, Regular Rhythm
== END 2021-09-02 10:58 | disposition home or self-care (01) ==
LOC: KA.ED 06:05 → KA.MS 08:26
PROVIDERS: ADMIT Physician Assistant Medical; ATTEND Internal Medicine
DX: R55 Syncope and collapse (principal); I25.10 Atherosclerotic heart disease of native coronary artery without angina pectoris; E78.00 Pure hypercholesterolemia, unspecified; I10 Essential (primary) hypertension; I25.2 Old myocardial infarction; J44.9 Chronic obstructive pulmonary disease, unspecified; E11.9 Type 2 diabetes mellitus without complications; E66.9 Obesity, unspecified; F41.8 Other specified anxiety disorders; K21.9 Gastro-esophageal reflux disease without esophagitis; G47.00 Insomnia, unspecified; K59.00 Constipation, unspecified; Z20.822 Contact with and (suspected) exposure to COVID-19; Z88.8 Allergy status to other drugs, medicaments and biological substances; Z88.5 Allergy status to narcotic agent; Z79.899 Other long term (current) drug therapy; Z79.82 Long term (current) use of aspirin; Z79.4 Long term (current) use of insulin; Z79.84 Long term (current) use of oral hypoglycemic drugs; Z98.890 Other specified postprocedural states; Z68.29 Body mass index [BMI] 29.0-29.9, adult
CPT/HCPCS: 36415; 70450; 71045; 72170; 80053; 81003; 82947; 84484; 85025; 97161-GP; 99285-25; A9270-GY; G0378; U0002

== ENCOUNTER 2021-10-04 15:34 | Emergency (ER) | payer OTHER ==
[2021-10-04] MEDS ORDERED: Sodium Chloride 0.9% 10 ML Syringe FLUSH PRN (15:45)
[2021-10-04 16:30] VITALS: BP 145/84; PULSE 70
[2021-10-04] MEDS ORDERED: Ketorolac 60 MG/2 ML SDV IM ONE (16:30)
== END 2021-10-04 16:50 | disposition home or self-care (01) ==
LOC: KA.ED 15:34
DX: M16.12 Unilateral primary osteoarthritis, left hip (principal); M47.816 Spondylosis without myelopathy or radiculopathy, lumbar region; I25.10 Atherosclerotic heart disease of native coronary artery without angina pectoris; E78.00 Pure hypercholesterolemia, unspecified; I10 Essential (primary) hypertension; I25.2 Old myocardial infarction; K21.9 Gastro-esophageal reflux disease without esophagitis; E11.9 Type 2 diabetes mellitus without complications; E66.9 Obesity, unspecified; Z68.30 Body mass index [BMI] 30.0-30.9, adult; Z79.899 Other long term (current) drug therapy; Z79.82 Long term (current) use of aspirin
CPT/HCPCS: 72100; 72170; 81003; 96372; 99283; J1885

== ENCOUNTER 2023-08-01 22:12 | Emergency (ER) | payer OTHER ==
[2023-08-01 22:25] LABS: BASOPHILS ABSOLUTE AUTO 0.01 10^3/uL (0.00-0.10); BASOPHILS PERCENT AUTO 0.1 % (0.0-1.0); EOSINOPHILS ABSOLUTE AUTO 0.01 10^3/uL (0.10-0.30); EOSINOPHILS PERCENT AUTO 0.1 % (1.0-3.0); HEMATOCRIT 47.5 % (40.0-52.0); HEMOGLOBIN 15.8 g/dL (13.0-17.0); IMMATURE GRAN ABSOLUTE AUTO 0.03 10^3/uL (0.00-0.50); IMMATURE GRAN PERCENT AUTO 0.3 % (0.0-5.0); LYMPHOCYTES ABSOLUTE AUTO 0.82 10^3/uL (1.00-4.00); LYMPHOCYTES PERCENT AUTO 8.3 % (20.0-40.0); MEAN CORPUSCULAR HEMOGLOBIN 27.8 pg (27.0-31.0); MEAN CORPUSCULAR HGB CONC 33.3 g/dL (32.0-36.0); MEAN CORPUSCULAR VOLUME 83.5 fL (82.0-92.0); MEAN PLATELET VOLUME 9.8 fL (7.4-10.4); MONOCYTES ABSOLUTE AUTO 0.57 10^3/uL (0.10-0.80); MONOCYTES PERCENT AUTO 5.8 % (2.0-8.0); NEUTROPHILS ABSOLUTE AUTO 8.43 10^3/uL (2.50-7.00); NEUTROPHILS PERCENT AUTO 85.4 % (50.0-70.0); PLATELET COUNT,PLT 192 10^3/uL (150-400); RED BLOOD CELL COUNT 5.69 10^6/uL (4.50-6.00); WHITE BLOOD CELL COUNT,WBC 9.87 10^3/uL (5.00-10.00)
[2023-08-01 22:52] LABS: ACETAMINOPHEN 13.5 ug/mL (10.0-30.0); ALANINE AMINOTRANSFERASE,ALT 28 U/L (14-63); ALBUMIN 4.15 g/dL (3.40-5.00); ALKALINE PHOSPHATASE 68 U/L (46-116); ANION GAP 18.2 mmol/L (5-15); ASPARTATE AMNIOTRANSFERASE,AST 15 U/L (15-37); BILIRUBIN TOTAL 0.3 mg/dL (0.2-1.0); BLOOD UREA NITROGEN,BUN 27 mg/dL (7-18); CALCIUM 8.7 mg/dL (8.7-10.3); CARBON DIOXIDE,CO2 21.5 mmol/L (21.0-32.0); CHLORIDE,CL 100 mmol/L (98-107); EST CRCL DRUG DOSING (CG) 58.73 mL/min; GLUCOSE RANDOM 287 mg/dL (70-140); POTASSIUM,K 4.7 mmol/L (3.5-5.1); PROTEIN TOTAL,TP 7.2 g/dL (6.4-8.2); SODIUM,NA 135 mmol/L (136-145)
[2023-08-01 22:53] LABS: ESTIMATED GFR 71 mL/min (>=60); ETHANOL BLOOD MEDICAL < 3 mg/dL (NOT DETECTED)
[2023-08-01 23:03] LABS: PROTHROMBIN TIME 10.6 SEC (9.2-11.2); PTT,PARTIAL THROMBOPLSTIN TIME 24.3 SEC (22.8-31.4)
[2023-08-01 23:30] LABS: AMPHETAMINES SCREEN, URINE NEGATIVE (NEGATIVE); BARBITURATE SCREEN,URINE NEGATIVE (NEGATIVE); BENZODIAZEPINES SCREEN,URINE NEGATIVE (NEGATIVE); COCAINE METABOLITES,URINE NEGATIVE (NEGATIVE); METHADONE SCREEN, URINE NEGATIVE (NEGATIVE); METHAMPHETAMINES SCREEN, URINE NEGATIVE (NEGATIVE); OXYCODONE SCREEN,URINE NEGATIVE (NEGATIVE); PCP SCREEN,URINE NEGATIVE (NEGATIVE); PROPOXYPHENE SCREEN,URINE NEGATIVE (NEGATIVE); TCA SCREEN,URINE NEGATIVE (NEGATIVE); THC SCREEN,URINE 50 NG/ML NEGATIVE (NEGATIVE)
[2023-08-01] MEDS: Sodium Chloride 0.9% 1,000 ML IV ONE (23:37)
[2023-08-01] MEDS: Sodium Chloride 0.9% 10 ML Syringe FLUSH PRN (23:45)
[2023-08-02 02:04] VITALS: PULSE 88
[2023-08-02 02:07] VITALS: BP 151/88
== END 2023-08-02 00:35 ==
LOC: KA.ED 22:12
DX: T50.902A Poisoning by unspecified drugs, medicaments and biological substances, intentional self-harm, initial encounter (principal); I25.10 Atherosclerotic heart disease of native coronary artery without angina pectoris; I10 Essential (primary) hypertension; I25.2 Old myocardial infarction; E78.00 Pure hypercholesterolemia, unspecified; J44.9 Chronic obstructive pulmonary disease, unspecified; K21.9 Gastro-esophageal reflux disease without esophagitis; M10.9 Gout, unspecified; E11.42 Type 2 diabetes mellitus with diabetic polyneuropathy; E11.319 Type 2 diabetes mellitus with unspecified diabetic retinopathy without macular edema; E66.9 Obesity, unspecified; Z68.29 Body mass index [BMI] 29.0-29.9, adult; Z88.8 Allergy status to other drugs, medicaments and biological substances; Z88.5 Allergy status to narcotic agent; Z79.899 Other long term (current) drug therapy; Z79.4 Long term (current) use of insulin; Z79.82 Long term (current) use of aspirin
CPT/HCPCS: 80053; 80143; 80305-QW; 80307; 82947; 84484; 85025; 85610; 85730; 96360; 99285-25; C1758; J3490; J7030

== ENCOUNTER 2023-10-22 16:44 | Emergency (ER) | payer OTHER ==
[2023-10-22] MEDS: Sodium Chloride 0.9% 1,000 ML IV ONE (17:32)
[2023-10-22 17:35] LABS: BASOPHILS ABSOLUTE AUTO 0.02 10^3/uL (0.00-0.10); BASOPHILS PERCENT AUTO 0.2 % (0.0-1.0); EOSINOPHILS ABSOLUTE AUTO 0.02 10^3/uL (0.10-0.30); EOSINOPHILS PERCENT AUTO 0.2 % (1.0-3.0); HEMATOCRIT 46.1 % (40.0-52.0); HEMOGLOBIN 15.3 g/dL (13.0-17.0); IMMATURE GRAN ABSOLUTE AUTO 0.02 10^3/uL (0.00-0.50); IMMATURE GRAN PERCENT AUTO 0.2 % (0.0-5.0); LYMPHOCYTES ABSOLUTE AUTO 0.67 10^3/uL (1.00-4.00); LYMPHOCYTES PERCENT AUTO 6.8 % (20.0-40.0); MEAN CORPUSCULAR HGB CONC 33.2 g/dL (32.0-36.0); MEAN CORPUSCULAR VOLUME 84.4 fL (82.0-92.0); MEAN PLATELET VOLUME 9.9 fL (7.4-10.4); MONOCYTES ABSOLUTE AUTO 1.18 10^3/uL (0.10-0.80); MONOCYTES PERCENT AUTO 11.9 % (2.0-8.0); NEUTROPHILS ABSOLUTE AUTO 7.97 10^3/uL (2.50-7.00); NEUTROPHILS PERCENT AUTO 80.7 % (50.0-70.0); PLATELET COUNT,PLT 140 10^3/uL (150-400); RED BLOOD CELL COUNT 5.46 10^6/uL (4.50-6.00); RED CELL DISTRIBUTION WIDTH 14.4 % (11.5-14.5); WHITE BLOOD CELL COUNT,WBC 9.88 10^3/uL (5.00-10.00)
[2023-10-22 17:51] LABS: ALANINE AMINOTRANSFERASE,ALT 21 U/L (14-63); ALBUMIN 4.01 g/dL (3.40-5.00); ALKALINE PHOSPHATASE 87 U/L (46-116); ANION GAP 14.2 mmol/L (5-15); ASPARTATE AMNIOTRANSFERASE,AST 9 U/L (15-37); BILIRUBIN TOTAL 0.7 mg/dL (0.2-1.0); BLOOD UREA NITROGEN,BUN 13 mg/dL (7-18); CARBON DIOXIDE,CO2 28.5 mmol/L (21.0-32.0); CHLORIDE,CL 99 mmol/L (98-107); GLUCOSE RANDOM 133 mg/dL (70-140); POTASSIUM,K 3.7 mmol/L (3.5-5.1); PROTEIN TOTAL,TP 7.4 g/dL (6.4-8.2); SODIUM,NA 138 mmol/L (136-145)
[2023-10-22 17:52] LABS: ESTIMATED GFR 80 mL/min (>=60)
[2023-10-22 18:06] LABS: APPEARANCE,URINE CLEAR (CLEAR); BILIRUBIN,URINE NEGATIVE (NEGATIVE); COLOR,URINE YELLOW (YELLOW); GLUCOSE,URINE 500 mg/dL (NEGATIVE); KETONES,URINE NEGATIVE (NEGATIVE); LEUKOCYTE ESTERASE,URINE NEGATIVE (NEGATIVE); NITRITE,URINE NEGATIVE (NEGATIVE); OCCULT BLOOD,URINE NEGATIVE (NEGATIVE); PH,URINE 5.5 (5.0-9.0); PROTEIN,URINE NEGATIVE (NEGATIVE); UROBILINOGEN,URINE 0.2 E.U./dL (0.2-1.0)
[2023-10-22 18:07] LABS: BACTERIA,URINE OCCASIONAL /HPF (NONE TO FEW); EPITHELIAL CELLS,URINE RARE /LPF; RBC,URINE 0-5 /HPF (0-5); WBC,URINE 0-5 /HPF (0-5)
[2023-10-22 18:37] LABS: INFLUENZA A NAA NEGATIVE (NEGATIVE); INFLUENZA B NAA NEGATIVE (NEGATIVE); RESPIRATORY SYNCYTIAL VIR NAA NEGATIVE (NEGATIVE)
[2023-10-22 18:41] LABS: CORONAVIRUS COVID-19 NAA POSITIVE (NEGATIVE)
[2023-10-22 23:01] VITALS: BP 130/82; PULSE 92
== END 2023-10-22 20:40 | disposition home or self-care (01) ==
LOC: KA.ED 16:44
DX: U07.1 COVID-19 (principal); R53.1 Weakness; I10 Essential (primary) hypertension; I25.10 Atherosclerotic heart disease of native coronary artery without angina pectoris; I25.2 Old myocardial infarction; J45.909 Unspecified asthma, uncomplicated; E11.9 Type 2 diabetes mellitus without complications; E66.9 Obesity, unspecified; Z68.27 Body mass index [BMI] 27.0-27.9, adult; Z88.8 Allergy status to other drugs, medicaments and biological substances; Z79.82 Long term (current) use of aspirin; Z79.899 Other long term (current) drug therapy; Z79.4 Long term (current) use of insulin
CPT/HCPCS: 0241U; 36415; 71046; 80053; 81001; 83605; 85025; 96360; 96361; 99284; 99285-25; J7030